=== PATIENT | male | born 1930 | race Two or more races ===

== ENCOUNTER 2016-12-12 23:59 | Inpatient (IN) | payer MEDICARE ==
[2016-12-13 00:25] LABS: HEMATOCRIT 38.2 % (37.9-51.0); HEMOGLOBIN 12.5 g/dL (13.5-17.0); HGB HCT DIFFERENCE -0.7; MEAN CORPUSCULAR HGB CONC 32.7 g/dL (32.0-36.0); MEAN CORPUSCULAR VOLUME 83 fl (80-97); RED BLOOD COUNT 4.62 10^6/uL (4.35-5.55); RED CELL DISTRIBUTION WIDTH 15.9 % (11.5-14.0); WHITE BLOOD COUNT 20.5 10^3/uL (4.0-10.5)
[2016-12-13 00:41] LABS: APPEARANCE,URINE CLEAR; BILIRUBIN,URINE NEGATIVE (NEGATIVE); GLUCOSE, URINE NEGATIVE (NEGATIVE); KETONES,URINE 80 mg/dL (NEGATIVE); LEUKOCYTE ESTERASE,URINE NEGATIVE (NEGATIVE); NITRITE,URINE NEGATIVE (NEGATIVE); PROTEIN,URINE NEGATIVE (NEGATIVE); URINE SPECIFIC GRAVITY 1.019
[2016-12-13 00:43] LABS: BAND NEUTROPHILS % (MANUAL) 1 % (3-5); BASOPHILS % (MANUAL) 1 % (0-2); EOSINOPHILS % (MANUAL) 0 % (0-6); LYMPHOCYTES % (MANUAL) 4 % (13-45); TOTAL CELLS COUNTED 100
[2016-12-13 00:46] LABS: ALANINE AMINOTRANSFERASE 26 U/L (21-72); ALBUMIN 4.5 g/dL (3.5-5.0); ALKALINE PHOSPHATASE 72 U/L (38-126); ANION GAP 13 (5-19); ASPARTATE AMINO TRANSFERASE 31 U/L (17-59); BILIRUBIN,TOTAL 1.4 mg/dL (0.2-1.3); BLOOD UREA NITROGEN 14 mg/dL (7-20); CALCIUM 9.5 mg/dL (8.4-10.2); CARBON DIOXIDE 23 mmol/L (22-30); CHLORIDE 101 mmol/L (98-107); CREATININE RESULT 0.64 mg/dL (0.52-1.25); GLUCOSE 175 mg/dL (75-110); LIPASE 22.6 U/L (23-300); POTASSIUM 4.3 mmol/L (3.6-5.0); SODIUM 137.4 mmol/L (137-145); TOTAL PROTEIN 7.6 g/dL (6.3-8.2)
[2016-12-13 00:47] LABS: ANISOCYTOSIS SLIGHT; OVALOCYTES 1+; TEAR DROP CELLS 1+
[2016-12-13] MEDS ORDERED: ONDANSETRON HCL INJ/PF 4 MG/2 ML SDV IV ONE (00:58)
[2016-12-13] MEDS ORDERED: MORPHINE SULFATE 10 MG/ML INJ IV ONE (00:58)
--- NOTE | 2016-12-13 01:00 | ER Document Report ---
ED GI/ - General Chief Complaint: Abdominal Pain Stated Complaint: ABDOMINAL PAIN Time seen by provider: 00:58 Mode of Arrival: Ambulatory Information source: Patient, Relative - Son TRAVEL OUTSIDE OF THE [place] IN LAST 30 DAYS: No - HPI Patient complains to provider of: Abdominal pain, Vomiting Onset: This afternoon Timing/Duration: Sudden Quality of pain: Achy Severity at maximum: Moderate Severity in ED: Moderate Pain Level: 4 Location: RLQ Associated symptoms: Nausea, Vomiting Exacerbated by: Denies Relieved by: Denies Similar symptoms previously: No Recently seen / treated by doctor: No Notes: 12/13/16 00:59 Patient is an 86-year-old male with a history of hypertension and high cholesterol who presents to the emergency room complaining of right lower quadrant abdominal pain with vomiting and nausea that started earlier today couple he denies a history of similar symptoms previously, last bowel movement was 2 days ago, no fever, no dysuria or hematuria, no history of any abdominal surgeries in the past - Related Data Allergies/Adverse Reactions: No Known Allergies Allergy (Unverified 01/21/15 11:40) Past Medical History - General Information source: Patient, Relative - Social History Smoking Status: Never Smoker Family History: Reviewed & Not Pertinent Review of Systems - Review of Systems Constitutional: No symptoms reported EENT: No symptoms reported Cardiovascular: No symptoms reported Respiratory: No symptoms reported Gastrointestinal: See HPI Genitourinary: No symptoms reported Male Genitourinary: No symptoms reported Musculoskeletal: No symptoms reported Skin: No symptoms reported Hematologic/Lymphatic: No symptoms reported Neurological/Psychological: No symptoms reported -: Yes All other systems reviewed and negative Physical Exam - Vital signs Vitals: Temp Pulse Resp BP Pulse Ox 98.3 F 79 19 175/72 H 98 12/13/16 00:19 12/13/16 00:19 12/13/16 00:19 12/13/16 00:19 12/13/16 00:19 Interpretation: Hypertensive - General General appearance: Appears well, Alert - HEENT Head: Normocephalic, Atraumatic Eyes: Normal Pupils: PERRL - Respiratory Respiratory status: No respiratory distress Chest status: Nontender Breath sounds: Normal Chest palpation: Normal - Cardiovascular Rhythm: Regular Heart sounds: Normal auscultation Murmur: No - Abdominal Inspection: Normal Distension: Distended Bowel sounds: Normal Tenderness: Tender - Right lower quadrant tenderness Organomegaly: No organomegaly - Back Back: Normal, Nontender - Extremities General upper extremity: Normal inspection, Nontender, Normal color, Normal ROM , Normal temperature General lower extremity: Normal inspection, Nontender, Normal color, Normal ROM , Normal temperature, Normal weight bearing. No: Nahed's sign - Neurological Neuro grossly intact: Yes Cognition: Normal Orientation: AAOx4 Emilia Coma Scale Eye Opening: Spontaneous [place] Coma Scale Verbal: Oriented [place] Coma Scale Motor: Obeys Commands [place] Coma Scale Total: 15 Speech: Normal Motor strength normal: LUE, RUE, LLE, RLE Sensory: Normal - Psychological Associated symptoms: Normal affect, Normal mood - Skin Skin Temperature: Warm Skin Moisture: Dry Skin Color: Normal Course - Re-evaluation Re-evalutation: 12/13/16 02:20 Patient was discussed with surgeon, Dr. Nguyen, who requests patient received antibiotics, 1 g of Invanz, fluid rehydration, remaining nothing by mouth, he will come to the emergency room and evaluate patient, this plan was discussed with patient in several family members at bedside who acknowledge understanding and agreement - Vital Signs Vital signs: Temp Pulse Resp BP Pulse Ox 98.3 F 79 19 175/72 H 98 12/13/16 00:19 12/13/16 00:19 12/13/16 00:19 12/13/16 00:19 12/13/16 00:19 - Laboratory Result Diagrams: 12/13/16 00:13 12/13/16 00:13 Laboratory results interpreted by me: 12/13/16 12/13/16 12/13/16 00:13 00:13 00:28 WBC 20.5 H Hgb 12.5 L RDW 15.9 H Seg Neuts % (Manual) 85 H Band Neutrophils % 1 L Lymphocytes % (Manual) 4 L Abs Neuts (Manual) 17.6 H Glucose 175 H Total Bilirubin 1.4 H Lipase 22.6 L Urine Ketones 80 H Urine Urobilinogen 4.0 H - Diagnostic Test Radiology reviewed: Image reviewed, Reports reviewed - Transfer of Care Care transferred to following provider: Dr Nguyen Discharge - Discharge Clinical Impression: Acute appendicitis Qualifiers: Acute appendicitis type: with localized peritonitis Qualified Code(s): K35.3 - Acute appendicitis with localized peritonitis Condition: Fair Disposition: ADMITTED INPATIENT Admitting Provider: Surgicalist Unit Admitted: Surgical Floor
[2016-12-13] MEDS: NORMAL SALINE 1000 ML 1,000 ML IV PRN ×2 (01:30→09:36)
[2016-12-13] MEDS ORDERED: ERTAPENEM SODIUM INJ 1 GM VIAL IV ONE (02:15)
[2016-12-13] MEDS ORDERED: LIDOCAINE 1% INJ-PF (10 MG/ML) 30 ML SDV ONE (07:07)
[2016-12-13] MEDS ORDERED: BUPIVACAINE HCL 0.25% /EPINEPHRINE INJ/PF 30 ML SDV ONE (07:08)
--- NOTE | 2016-12-13 07:48 | PDOC H&P ---
History of Present Illness Admission Date/PCP: 12/13/16 02:37 History of Present Illness: CAROLINA WESLEY is a 86 year old male originally from [facility], presents with onset of abdominal pain. The patient had a small breakfast on 12/12/2016. He intended to eat a late lunch at 2 PM, but had loss of appetite. At 4 PM he noticed the onset of mid abdominal pain. Gradually the pain localized to the right lower quadrant. He drinks water, tried Imodium but neither of these helped. He had nausea and vomited 5 times. He had fevers and chills. The pain stayed in the right lower quadrant and radiated out throughout his abdomen, but did not go to his back or legs or chest. The pain is severe. The pain is constant. The patient has hiccups and burping as well. He denies constipation, diarrhea, chest pain, shortness of breath, dizziness, lightheadedness, seizures, tremors, vision changes, headaches, leg swelling, rash, itching. He denies blood in his stool or blood in his urine. Had a normal bowel movement yesterday morning. Past Medical History Cardiac Medical History: Reports: Hyperlipidema, Hypertension Past Surgical History Past Surgical History: Reports: Other - Nose surgery 2003. Laser eye surgery. Social History Information Source: Patient Lives with: Family Smoking Status: Former Smoker - Quit in 1999 Last Time Smoked: 1999 Frequency of Alcohol Use: None Hx Recreational Drug Use: No Drugs: None Hx Prescription Drug Abuse: No Family History Family History: Reviewed & Not Pertinent, Other - Denies any significant family illnesses. Denies personal or family history of bleeding disorders, blood clots or anesthesia problems. Parental Family History Reviewed: Yes Children Family History Reviewed: Yes Sibling(s) Family History Reviewed.: Yes Medication/Allergy Allergies/Adverse Reactions: No Known Allergies Allergy (Unverified 01/21/15 11:40) Review of Systems All systems: reviewed and no additional remarkable complaints except as stated Physical Exam Vital Signs: Temp Pulse Resp BP Pulse Ox 101.9 F H 97 19 132/58 H 96 12/13/16 06:15 12/13/16 06:15 12/13/16 06:15 12/13/16 06:15 12/13/16 06:15 Intake & Output 12/12/16 12/13/16 12/14/16 06:59 06:59 06:59 Weight 70.3 kg General appearance: PRESENT: mild distress Head exam: PRESENT: normocephalic Eye exam: PRESENT: EOMI Mouth exam: PRESENT: tongue midline Neck exam: ABSENT: tenderness Respiratory exam: PRESENT: clear to auscultation william Cardiovascular exam: PRESENT: RRR, tachycardia GI/Abdominal exam: PRESENT: distended, hernia - Bilateral easily reducible hernias., soft, tenderness. ABSENT: guarding, rebound Extremities exam: ABSENT: tenderness Musculoskeletal exam: ABSENT: deformity Neurological exam: PRESENT: alert, oriented to person, oriented to place, oriented to time, oriented to situation Psychiatric exam: PRESENT: appropriate affect, normal mood Skin exam: ABSENT: jaundice, pallor Results Impressions: Abdomen/Pelvis CT 12/13/16 00:57 IMPRESSION: 1. Acute appendicitis. No evidence of abscess or free air. 2. Prominent hiatal hernia. 3. Sigmoid colon containing left inguinal hernia without imaging findings to suggest incarceration. 4. Other chronic and incidental findings as detailed above. Status: Image reviewed by me Assessment & Plan - Diagnosis (1) Acute appendicitis Qualifiers: Acute appendicitis type: with localized peritonitis Qualified Code(s): K35.3 - Acute appendicitis with localized peritonitis Is this a current diagnosis for this admission?: YesPlan: Nothing by mouth. SCDs. Already received Invanz. EKG and chest x-ray for preop. Recommended laparoscopic appendectomy. I discussed pre-and postoperative expectations and limitations. I discussed risks, benefits and alternatives including , heart attack, stroke, blood clots in legs, blood clots in lungs, pneumonia, hernia, bleeding, infection, damage to surrounding structures such as bladder, bowel, blood vessels and ureters. We discussed the incidental findings on the CT scan. I gave him a copy of the report. I directed them to follow-up with her primary care provider in 2 weeks with the incidental findings. The patient's primary language is aerobic but he does speak some Yakut. His son Julio Cesar was present and is fluent in Yakut and assisted with some translation. The [employer] computer was used to confirm the history, to perform the physical, to obtain the consents, to make the recommendations about PCP follow-up on the CT scan, to answer any questions. Our freelance data entry's name was Augusto. Understands and wishes to proceed with laparoscopic appendectomy.
[2016-12-13] MEDS ORDERED: HYDROMORPHONE HCL INJ/PF 2 MG/ML AMPULE ONE ×2 (07:49)
[2016-12-13] MEDS ORDERED: FENTANYL CITRATE INJ/PF 100 MCG/2 ML AMPUL ONE ×2 (07:49→08:07)
[2016-12-13] MEDS ORDERED: MIDAZOLAM 2 MG/2 ML INJ ONE (07:50)
[2016-12-13] MEDS ORDERED: PROPOFOL INJ 200 MG/20 ML VIAL IV ONE (07:50)
[2016-12-13] MEDS ORDERED: ACETAMINOPHEN 100 ML IV ONE (07:50)
[2016-12-13] MEDS ORDERED: EPHEDRINE SULFATE INJ 50 MG/1 ML AMPULE ONE (07:50)
[2016-12-13] MEDS ORDERED: NEOSTIGMINE METHYLSULFATE 10 MG/10 ML VIAL ONE (08:40)
[2016-12-13] MEDS ORDERED: PHENYLEPHRINE HCL INJ/PF 10 MG/1 ML SDV ONE (08:40)
[2016-12-13] MEDS ORDERED: DEXAMETHASONE SOD PHOSPHATE INJ 4 MG/1 ML VIAL ONE (08:40)
[2016-12-13] MEDS ORDERED: ONDANSETRON HCL INJ/PF 4 MG/2 ML SDV ONE (08:40)
[2016-12-13] MEDS ORDERED: SUCCINYLCHOLINE CHLORIDE INJ 200 MG/10 ML VIAL ONE (08:40)
[2016-12-13] MEDS ORDERED: LIDOCAINE 2% INJ-PF (20 MG/ML) 10 ML AMPUL ONE (08:40)
[2016-12-13] MEDS ORDERED: ROCURONIUM BROMIDE INJ 50 MG/5 ML VIAL IV ONE (08:40)
[2016-12-13] MEDS ORDERED: GLYCOPYRROLATE INJ 0.4 MG/2 ML VIAL ONE (08:40)
--- NOTE | 2016-12-13 09:23 | EKG REPORT ---
SEVERITY:- BORDERLINE ECG - SINUS RHYTHM PROBABLE LEFT ATRIAL ABNORMALITY MINIMAL ST DEPRESSION, LATERAL LEADS : Confirmed by: Caroline Smith 13-Dec-2016 09:22:27
[2016-12-13] MEDS: NALOXONE HCL INJ/PF 0.4 MG/1 ML SDV ONE ×3 (10:33→10:53)
--- NOTE | 2016-12-13 10:46 | Operative Report ---
Operative Report DATE OF SURGERY: 12/13/16 PREOPERATIVE DIAGNOSIS: Acute appendicitis POSTOPERATIVE DIAGNOSIS: Ruptured appendicitis with peritoneal contamination OPERATION: Laparoscopic appendectomy SURGEON: EVELIA DAVE ANESTHESIA: GA TISSUE REMOVED OR ALTERED: Appendix COMPLICATIONS: None noted ESTIMATED BLOOD LOSS: minimal INTRAOPERATIVE FINDINGS: Ruptured appendicitis with peritoneal contamination PROCEDURE: The patient was brought to the operative suite and placed supine on the OR table. Timeout was performed. Antibiotics were administered in the ER. Padding and positioning was appropriate. The patient was induced, intubated and maintained on general endotracheal anesthesia throughout the procedure. Clark catheter was placed sterilely. Patient was prepped and draped in the normal sterile fashion. The skin above the umbilicus was infiltrated with local anesthetic. A 5 mm incision was made. A [place] and [place]on were used to dissect down to the level of the fascia, grasped the fascia and elevate it. The Veress needle was placed. Satisfactory water drop test was performed. Low flow insufflation was connected and yielded low opening pressure. Insufflation was advanced to high flow and pneumoperitoneum of 15 mmHg was obtained and maintained with procedure. Trocar and camera were placed through this incision confirming entry into the abdominal cavity without incident. Next, the 5 mm suprapubic and the 12 mm left lower quadrant incisions were placed in normal location and fashion under direct visualization after infiltration with local anesthetic. Instruments were introduced in the abdominal cavity was inspected. There was feculent contamination and abscess in the right lower quadrant. There was murky fluid in the pelvis, in the right paracolic gutter, and over the liver edge. The terminal ileum and cecum showed inflammation and were adhesed down to the appendix but otherwise appeared normal. The appendix was dilated, turgid and had a hole in the lateral aspect with stool and pus leaking out. Pelvic sidewall adhesions to the appendix were taken down with Harmonic scalpel. The appendix was elevated. A window was made at the base the appendix adjacent to the cecum. The echelon 45 blue load stapler was used to fire across the base the appendix adjacent to the cecum. The mesoappendix was taken down with multiple firings of the Harmonic scalpel. The appendix was placed in an Endo Catch bag and removed through the 12 mm trocar site and sent to pathology for further analysis. The abdominal cavity was irrigated in various locations with 3 L of crystalloid in aliquots of 100-300 mL. The irrigation was aspirated free of the abdominal cavity. The right lower quadrant was inspected. Staple line was intact. Residual fluid was suctioned. A 15 Hungarian round drain was placed along the right paracolic gutter from the liver down to the cecum and brought out through the suprapubic incision. It was sewn in place with a 2-0 Prolene suture and connected to TOMMY bulb closed suction. The abdominal cavity was surveyed and was unremarkable. Trocar sites were infiltrated with more local anesthetic. The left lower quadrant trocar site was closed at the level of the fascia with 0 Vicryl suture using the Endo Close needle. Pneumoperitoneum was released. Trochars were removed. Incisions were closed at the level of the skin with 4-0 Monocryl. The closed incisions were dressed with benzoin tincture, Steri-Strips and Band-Aids. All lap, needle and sponge counts were correct. The patient tolerated procedure well and was taken recovery in stable condition.
[2016-12-13] MEDS ORDERED: DOCUSATE SODIUM 100 MG CAPSULE PO ONE (11:00)
[2016-12-13] MEDS ORDERED: POTASSI CL 20 MEQ/D5-1/2NS 1L 1,000 ML IV ONE (11:10)
[2016-12-13] MEDS: MORPHINE SULFATE 10 MG/ML INJ IV PRN ×2 (14:29→21:20)
[2016-12-13] MEDS: PIPERACILLIN SODIUM/TAZOBACTAM 3.375 GM in NORMAL SALINE 100 ML IV SCH ×2 (15:11→18:44)
[2016-12-13] MEDS: DOCUSATE SODIUM 100 MG CAPSULE PO SCH (18:44)
[2016-12-13] MEDS: POTASSI CL 20 MEQ/D5-1/2NS 1L 1,000 ML IV PRN (21:05)
--- NOTE | 2016-12-13 21:19 | PDOC PROGRESS REPORT ---
Subjective Progress Note for:: 12/13/16 Subjective:: Patient seen later in the day. Denies nausea or vomiting. Awake, visiting with his grandsons. Reports mild discomfort. Physical Exam Vital Signs: Temp Pulse Resp BP Pulse Ox 97.5 F 78 16 112/68 96 12/13/16 20:01 12/13/16 20:01 12/13/16 20:01 12/13/16 20:01 12/13/16 20:01 Pulse Oximeter Continuous Start: 12/13/16 11: 19 Freq: RTQ4 Status: Active Document 12/13/16 20:00 LRO (Rec: 12/13/16 20:53 LRO [id number]) Pulse Oximetry Assessment Oxygen Saturation (92-100) 96 Oxygen Flow Rate (L/min) 2 Oxygen Delivery Method Nasal Cannula Equipment Usage Equipment in Use Continuous SpO2 Machine # 2 Intake & Output 12/12/16 12/13/16 12/14/16 06:59 06:59 06:59 Intake Total 1256 Output Total 340 Balance 916 General appearance: PRESENT: no acute distress Head exam: PRESENT: normocephalic Eye exam: PRESENT: EOMI Mouth exam: PRESENT: tongue midline GI/Abdominal exam: PRESENT: distended, soft, tenderness - Appropriate tenderness. Incisions intact with dressings. Drain with serosanguineous.. ABSENT: guarding, rebound Extremities exam: ABSENT: tenderness Neurological exam: PRESENT: alert, oriented to situation Psychiatric exam: PRESENT: appropriate affect, normal mood Skin exam: PRESENT: normal color. ABSENT: jaundice Results Impressions: Chest X-Ray 12/13/16 00:00 IMPRESSION: Parenchymal opacities at the lung bases somewhat interstitial. Acute versus chronic versus both. Abdomen/Pelvis CT 12/13/16 00:57 IMPRESSION: 1. Acute appendicitis. No evidence of abscess or free air. 2. Prominent hiatal hernia. 3. Sigmoid colon containing left inguinal hernia without imaging findings to suggest incarceration. 4. Other chronic and incidental findings as detailed above. Assessment & Plan - Diagnosis (1) Acute appendicitis Qualifiers: Acute appendicitis type: with localized peritonitis Qualified Code(s): K35.3 - Acute appendicitis with localized peritonitis Is this a current diagnosis for this admission?: YesPlan: Looks much better. Continue antibiotics, I-S, SCDs, Lovenox, TOMMY drains, ice chips. Patient later requested Clark removal. Was having adequate output. Clark was removed. Labs in the morning.
[2016-12-13] MEDS: ONDANSETRON HCL INJ/PF 4 MG/2 ML SDV IV PRN (21:20)
[2016-12-14] MEDS: PIPERACILLIN SODIUM/TAZOBACTAM 3.375 GM in NORMAL SALINE 100 ML IV SCH ×4 (00:13→18:13)
[2016-12-14] MEDS: MORPHINE SULFATE 10 MG/ML INJ IV PRN ×5 (01:58→22:29)
[2016-12-14] MEDS: POTASSI CL 20 MEQ/D5-1/2NS 1L 1,000 ML IV PRN ×2 (06:28→18:12)
[2016-12-14 06:39] LABS: HEMATOCRIT 35.2 % (37.9-51.0); HEMOGLOBIN 11.3 g/dL (13.5-17.0); HGB HCT DIFFERENCE -1.3; MEAN CORPUSCULAR HEMOGLOBIN 27.1 pg (27.0-33.4); MEAN CORPUSCULAR HGB CONC 32.1 g/dL (32.0-36.0); MEAN CORPUSCULAR VOLUME 84 fl (80-97); RED BLOOD COUNT 4.17 10^6/uL (4.35-5.55); WHITE BLOOD COUNT 24.3 10^3/uL (4.0-10.5)
[2016-12-14 06:49] LABS: ALANINE AMINOTRANSFERASE 22 U/L (21-72); ALBUMIN 3.7 g/dL (3.5-5.0); ALKALINE PHOSPHATASE 59 U/L (38-126); ANION GAP 13 (5-19); ASPARTATE AMINO TRANSFERASE 27 U/L (17-59); BLOOD UREA NITROGEN 21 mg/dL (7-20); CALCIUM 7.9 mg/dL (8.4-10.2); CARBON DIOXIDE 20 mmol/L (22-30); CHLORIDE 105 mmol/L (98-107); CREATININE RESULT 0.89 mg/dL (0.52-1.25); GLUCOSE 135 mg/dL (75-110); MAGNESIUM 1.8 mg/dL (1.6-2.3); SODIUM 138.1 mmol/L (137-145); TOTAL PROTEIN 6.7 g/dL (6.3-8.2)
[2016-12-14] MEDS: IPRATROPIUM/ALBUTEROL 0.5-2.5 MG/3 ML AMPUL NEB PRN ×2 (09:49→17:21)
[2016-12-14] MEDS: ENOXAPARIN SODIUM INJ 40 MG/0.4 ML DISP.SYRIN SUBCUT SCH (10:25)
[2016-12-14] MEDS: DOCUSATE SODIUM 100 MG CAPSULE PO SCH ×2 (10:25→18:13)
[2016-12-14] MEDS: IPRATROPIUM/ALBUTEROL 0.5-2.5 MG/3 ML AMPUL NEB SCH ×2 (13:40→20:12)
[2016-12-14] MEDS ORDERED: ENALAPRILAT DIHYDRATE INJ/PF 1.25 MG/1 ML SDV IV PRN (13:41)
--- NOTE | 2016-12-14 13:45 | PDOC CONSULTATION ---
Consultation Consult Date: 12/14/16 Attending physician:: EVELIA NGUYEN Consult reason:: Wheezing, hypertension History of Present Illness Admission Date/PCP: 12/13/16 10:12 Patient complains of: Cough and wheezing History of Present Illness: CAROLINA WESLEY is a 86 year old male originally from [facility], presents with onset of abdominal pain. The patient had a small breakfast on 12/12/2016. He intended to eat a late lunch at 2 PM, but had loss of appetite. At 4 PM he noticed the onset of mid abdominal pain. Gradually the pain localized to the right lower quadrant. He drinks water, tried Imodium but neither of these helped. He had nausea and vomited 5 times. He had fevers and chills. The pain stayed in the right lower quadrant and radiated out throughout his abdomen, but did not go to his back or legs or chest. The pain is severe. The pain is constant. The patient has hiccups and burping as well. He denies constipation, diarrhea, chest pain, shortness of breath, dizziness, lightheadedness, seizures, tremors, vision changes, headaches, leg swelling, rash, itching. He denies blood in his stool or blood in his urine. Had a normal bowel movement yesterday morning. He was taken to the OR by Dr Nguyen, yesterday morning for an emergent appendectomy for appendeceal perforation. He tolerated surgery well. This morning he was noted by nursing to have a cough and some expiratory wheezing. 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 Laser eye surgery. Social History Information Source: Patient, Relative Lives with: Family Smoking Status: Former Smoker - Quit in 1999 Last Time Smoked: 1999 Frequency of Alcohol Use: None Hx Recreational Drug Use: No Drugs: None Hx Prescription Drug Abuse: No - Advance Directive Resuscitation Status: Full Code Surrogate healthcare decision maker:: He has no designated MPOA, his 2 sons are his closest relatives and will decide for him should he become incapacitated. Family History Family History: Hypertension, Other - Denies any significant family illnesses. Denies personal or family history of bleeding disorders, blood clots or anesthesia problems. Parental Family History Reviewed: Yes Children Family History Reviewed: Yes Sibling(s) Family History Reviewed.: Yes Medication/Allergy Home Medications: Lisinopril [Prinivil 2.5 mg Tablet] 2.5 mg PO DAILY 12/13/16 Pravastatin Sodium [Pravachol] 20 mg PO DAILY 12/13/16 Allergies/Adverse Reactions: No Known Allergies Allergy (Unverified 01/21/15 11:40) Review of Systems Constitutional: ABSENT: chills, fever(s), headache(s), weight gain, weight loss Eyes: ABSENT: visual disturbances Ears: ABSENT: hearing changes Cardiovascular: ABSENT: chest pain, dyspnea on exertion, edema, orthropnea, palpitations Respiratory: PRESENT: cough, sputum, other - mild expiratory wheezing Gastrointestinal: PRESENT: abdominal pain - related to surgery, constipation. ABSENT: diarrhea, hematemesis, hematochezia, nausea, vomiting Musculoskeletal: ABSENT: joint swelling Integumentary: ABSENT: rash, wounds Neurological: ABSENT: abnormal gait, abnormal speech, confusion, dizziness, focal weakness, syncope Psychiatric: ABSENT: anxiety, depression, homidical ideation, suicidal ideation Endocrine: ABSENT: cold intolerance, heat intolerance, polydipsia, polyuria Hematologic/Lymphatic: ABSENT: easy bleeding, easy bruising Physical Exam Vital Signs: Temp Pulse Resp BP Pulse Ox 98.5 F 95 18 131/74 H 96 12/14/16 12:00 12/14/16 12:00 12/14/16 12:00 12/14/16 12:00 12/14/16 12:00 Pulse Oximeter Continuous Start: 12/13/16 11: 19 Freq: RTQ4 Status: Active Document 12/14/16 09:49 [facility] (Rec: 12/14/16 09:57 [facility] [email or web address]) Pulse Oximetry Assessment Oxygen Saturation (92-100) 81 Oxygen Flow Rate (L/min) 18 Oxygen Delivery Method Nasal Cannula Fraction of Inspired Oxygen (FIO2) 2 Equipment Usage Equipment in Use Continuous SpO2 Machine # 2 Intake & Output 12/13/16 12/14/16 12/15/16 06:59 06:59 06:59 Intake Total 2449 Output Total 600 Balance 1849 General appearance: PRESENT: no acute distress, well-developed, well-nourished Head exam: PRESENT: atraumatic, normocephalic Eye exam: PRESENT: conjunctiva pink, EOMI, PERRLA. ABSENT: scleral icterus Ear exam: PRESENT: normal external ear exam Mouth exam: PRESENT: moist, tongue midline Neck exam: ABSENT: carotid bruit, JVD, lymphadenopathy, thyromegaly Respiratory exam: PRESENT: clear to auscultation william. ABSENT: rales, rhonchi, wheezes Cardiovascular exam: PRESENT: RRR. ABSENT: diastolic murmur, rubs, systolic murmur Pulses: PRESENT: normal dorsalis pedis pul Vascular exam: PRESENT: normal capillary refill GI/Abdominal exam: PRESENT: hypoactive bowel sounds, soft, tenderness - incisional. ABSENT: distended, guarding, mass, organolmegaly, rebound Rectal exam: PRESENT: deferred Extremities exam: PRESENT: full ROM. ABSENT: calf tenderness, clubbing, pedal edema Neurological exam: PRESENT: alert, awake, oriented to person, oriented to place , oriented to time, oriented to situation, CN II-XII grossly intact. ABSENT: motor sensory deficit Psychiatric exam: PRESENT: appropriate affect, normal mood. ABSENT: homicidal ideation, suicidal ideation Skin exam: PRESENT: dry, intact, warm. ABSENT: cyanosis, rash Results Laboratory Results: 12/14/16 05:37 12/14/16 05:37 12/14/16 12/14/16 05:37 05:37 WBC 24.3 H RBC 4.17 L Hgb 11.3 L Hct 35.2 L MCV 84 MCH 27.1 MCHC 32.1 RDW 17.0 H Plt Count 188 Sodium 138.1 Potassium 5.0 Chloride 105 Carbon Dioxide 20 L Anion Gap 13 BUN 21 H Creatinine 0.89 Est GFR ( Amer) > 60 Est GFR (Non-Af Amer) > 60 Glucose 135 H Calcium 7.9 L Phosphorus 3.0 Magnesium 1.8 Total Bilirubin 1.0 AST 27 ALT 22 Alkaline Phosphatase 59 Total Protein 6.7 Albumin 3.7 12/14/16 05:37 NT-Pro-B Natriuret Pep 507 H Impressions: Abdomen/Pelvis CT 12/13/16 00:57 IMPRESSION: 1. Acute appendicitis. No evidence of abscess or free air. 2. Prominent hiatal hernia. 3. Sigmoid colon containing left inguinal hernia without imaging findings to suggest incarceration. 4. Other chronic and incidental findings as detailed above. Chest X-Ray 12/14/16 08:43 IMPRESSION: Right basilar airspace disease likely atelectasis Assessment & Plan - Diagnosis (1) Acute appendicitis Qualifiers: Acute appendicitis type: with localized peritonitis Qualified Code(s): K35.3 - Acute appendicitis with localized peritonitis Is this a current diagnosis for this admission?: YesPlan: Patient is POD #1 emergent appendectomy with drain placement by Dr Nguyen. Doing very well at this time. On Zosyn (2) Wheezing Is this a current diagnosis for this admission?: YesPlan: Patient with mild expiratory wheezing on auscultation. Does not appear to be related to fluid volume overload. Will start Duoneb nebulizers and flutter valve. 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 (3) Essential (primary) hypertension Is this a current diagnosis for this admission?: YesPlan: Patient is presently normotensive and NPO. He takes low dose lisinopril. Will add prn vasotec for hypertension if needed prior to him resuming oral intake - Time Time Spent: 50 to 70 Minutes Critical Time spent with patient: 25-34 minutes Medications reviewed and adjusted accordingly: Yes
--- NOTE | 2016-12-14 15:20 | PDOC PROGRESS REPORT ---
Subjective Subjective:: Noted this morning to have decreased saturations and wheezes. Patient was switched to nasal cannula and saturations improved. Patient has a long history of smoking, although he did quit around 15 years ago. BNP was checked and was just over normal, indicating the etiology is probably not heart failure. Physical Exam Vital Signs: Temp Pulse Resp BP Pulse Ox 98.5 F 99 18 131/74 H 100 12/14/16 12:00 12/14/16 14:00 12/14/16 13:40 12/14/16 12:00 12/14/16 13:40 Pulse Oximeter Continuous Start: 12/13/16 11: 19 Freq: RTQ4 Status: Active Document 12/14/16 12:00 [facility] (Rec: 12/14/16 13:42 [facility] [email or web address]) Pulse Oximetry Assessment Oxygen Saturation (92-100) 100 Oxygen Flow Rate (L/min) 2 Oxygen Delivery Method Nasal Cannula Equipment Usage Equipment in Use Continuous SpO2 Machine # 2 Intake & Output 12/13/16 12/14/16 12/15/16 06:59 06:59 06:59 Intake Total 2449 Output Total 600 Balance 1849 General appearance: PRESENT: no acute distress Head exam: PRESENT: normocephalic Eye exam: PRESENT: EOMI Respiratory exam: PRESENT: wheezes Cardiovascular exam: PRESENT: RRR, systolic murmur GI/Abdominal exam: PRESENT: distended, soft, tenderness - Appropriate tenderness to palpation. Incisions clean dry and intact with dressings. Drain with murky/purulent fluid. No bowel sounds.. ABSENT: guarding, rebound Neurological exam: PRESENT: alert, oriented to situation Psychiatric exam: PRESENT: appropriate affect, normal mood Skin exam: ABSENT: jaundice Results Laboratory Results: 12/14/16 05:37 12/14/16 05:37 12/14/16 12/14/16 05:37 05:37 WBC 24.3 H RBC 4.17 L Hgb 11.3 L Hct 35.2 L MCV 84 MCH 27.1 MCHC 32.1 RDW 17.0 H Plt Count 188 Sodium 138.1 Potassium 5.0 Chloride 105 Carbon Dioxide 20 L Anion Gap 13 BUN 21 H Creatinine 0.89 Est GFR ( Amer) > 60 Est GFR (Non-Af Amer) > 60 Glucose 135 H Calcium 7.9 L Phosphorus 3.0 Magnesium 1.8 Total Bilirubin 1.0 AST 27 ALT 22 Alkaline Phosphatase 59 Total Protein 6.7 Albumin 3.7 12/14/16 05:37 NT-Pro-B Natriuret Pep 507 H Impressions: Abdomen/Pelvis CT 12/13/16 00:57 IMPRESSION: 1. Acute appendicitis. No evidence of abscess or free air. 2. Prominent hiatal hernia. 3. Sigmoid colon containing left inguinal hernia without imaging findings to suggest incarceration. 4. Other chronic and incidental findings as detailed above. Chest X-Ray 12/14/16 08:43 IMPRESSION: Right basilar airspace disease likely atelectasis Assessment & Plan - Diagnosis (1) Acute appendicitis Qualifiers: Acute appendicitis type: with localized peritonitis Qualified Code(s): K35.3 - Acute appendicitis with localized peritonitis Is this a current diagnosis for this admission?: YesPlan: Acute appendicitis with feculent contamination of the peritoneum. Blood culture showed bacteremia. IV Zosyn should have good coverage for the enteric organisms which would be the offending agents. Temp and heart rate are better, but he is still experiencing significant effects of feculent contamination with sepsis. Would not be surprised if he had an extended ileus. He continues to have purulent drainage out of his drain. He has diffuse wheezes and decreased saturations, medicine was consulted. DuoNeb treatment was begun. He does not seem to be in heart failure based on his BMP which was just barely over normal. He does have a 50+ pack year history of smoking. Continue IV Zosyn, IV fluids , nothing by mouth, SCDs, incentive spirometry, flutter valve, Lovenox.
[2016-12-15] MEDS: PIPERACILLIN SODIUM/TAZOBACTAM 3.375 GM in NORMAL SALINE 100 ML IV SCH ×5 (00:16→23:47)
[2016-12-15] MEDS: MORPHINE SULFATE 10 MG/ML INJ IV PRN ×4 (01:14→08:52)
[2016-12-15] MEDS: IPRATROPIUM/ALBUTEROL 0.5-2.5 MG/3 ML AMPUL NEB PRN ×2 (04:29→12:32)
[2016-12-15 07:36] LABS: ABSOLUTE EOSINOPHILS # (AUTO) 0.1 10^3/uL (0.0-0.6); ABSOLUTE MONOCYTES (AUTO) 0.7 10^3/uL (0.1-1.4); ABSOLUTE NEUT (AUTO) 12.7 10^3/uL (1.7-8.2); BASOPHILS % (AUTO) 0.1 % (0-2); EOSINOPHILS % (AUTO) 0.4 % (0-6); HEMATOCRIT 32.6 % (37.9-51.0); HEMOGLOBIN 10.5 g/dL (13.5-17.0); HGB HCT DIFFERENCE -1.1; LYMPHOCYTES % (AUTO) 6.6 % (13-45); MEAN CORPUSCULAR HEMOGLOBIN 27.2 pg (27.0-33.4); MEAN CORPUSCULAR HGB CONC 32.3 g/dL (32.0-36.0); MEAN CORPUSCULAR VOLUME 84 fl (80-97); MONOCYTES % (AUTO) 4.9 % (3-13); RED BLOOD COUNT 3.87 10^6/uL (4.35-5.55); RED CELL DISTRIBUTION WIDTH 16.9 % (11.5-14.0); WHITE BLOOD COUNT 14.5 10^3/uL (4.0-10.5)
[2016-12-15] MEDS: ENOXAPARIN SODIUM INJ 40 MG/0.4 ML DISP.SYRIN SUBCUT SCH (07:54)
[2016-12-15] MEDS: IPRATROPIUM/ALBUTEROL 0.5-2.5 MG/3 ML AMPUL NEB SCH ×3 (08:38→20:09)
[2016-12-15] MEDS ORDERED: POTASSI CL 20 MEQ/D5-1/2NS 1L 1,000 ML IV PRN (09:21)
[2016-12-15] MEDS ORDERED: OXYCODONE-ACETAMINOPHEN 5-325 MG TABLET PO PRN (09:21)
[2016-12-15] MEDS: DOCUSATE SODIUM 100 MG CAPSULE PO SCH ×2 (10:00→17:19)
--- NOTE | 2016-12-15 10:35 | PDOC PROGRESS REPORT ---
Subjective Progress Note for:: 12/15/16 Subjective:: Postoperative day 2 laparoscopic appendectomy Physical Exam Vital Signs: Temp Pulse Resp BP Pulse Ox 99.4 F 100 18 119/54 L 94 12/15/16 07:29 12/15/16 08:38 12/15/16 08:38 12/15/16 07:29 12/15/16 08:38 Pulse Oximeter Continuous Start: 12/13/16 11: 19 Freq: RTQ4 Status: Active Document 12/15/16 08:38 [facility] (Rec: 12/15/16 08:48 [facility] [email or web address]) Pulse Oximetry Assessment Oxygen Saturation (92-100) 94 Oxygen Flow Rate (L/min) 2 Oxygen Delivery Method Nasal Cannula Equipment Usage Equipment in Use Continuous SpO2 Machine # 2 Intake & Output 12/14/16 12/15/16 12/16/16 06:59 06:59 06:59 Intake Total 2449 2310 Output Total 600 705 Balance 1849 1605 General appearance: PRESENT: mild distress, other - Patient is audibly wheezing GI/Abdominal exam: PRESENT: other - Some bruising of the abdominal wall towards the pelvis left side. Draining serous sanguinous material Results Laboratory Results: 12/15/16 07:12 12/14/16 05:37 12/15/16 07:12 WBC 14.5 H RBC 3.87 L Hgb 10.5 L Hct 32.6 L MCV 84 MCH 27.2 MCHC 32.3 RDW 16.9 H Plt Count 179 Seg Neutrophils % 88.0 H Lymphocytes % 6.6 L Monocytes % 4.9 Eosinophils % 0.4 Basophils % 0.1 Absolute Neutrophils 12.7 H Absolute Lymphocytes 1.0 Absolute Monocytes 0.7 Absolute Eosinophils 0.1 Absolute Basophils 0.0 12/14/16 05:37 NT-Pro-B Natriuret Pep 507 H Impressions: Abdomen/Pelvis CT 12/13/16 00:57 IMPRESSION: 1. Acute appendicitis. No evidence of abscess or free air. 2. Prominent hiatal hernia. 3. Sigmoid colon containing left inguinal hernia without imaging findings to suggest incarceration. 4. Other chronic and incidental findings as detailed above. Chest X-Ray 12/14/16 08:43 IMPRESSION: Right basilar airspace disease likely atelectasis Assessment & Plan - Diagnosis (1) Acute appendicitis Qualifiers: Acute appendicitis type: with localized peritonitis Qualified Code(s): K35.3 - Acute appendicitis with localized peritonitis Is this a current diagnosis for this admission?: YesPlan: Patient is 2 days status post laparoscopic appendectomy by Dr. MOISES anton; he has no evidence of postoperative gastrointestinal problems. We will start clear liquid diet and advance as tolerated. We will leave the pelvic drain in position daily. 2. Pulmonary function poor from a chronic standpoint. We will review his medications, step up his pulmonary toilet and ambulation 3. Will decrease IV fluids and watch urine output closely. - Time Time Spent with patient: 15-24 minutes
[2016-12-15] MEDS ORDERED: GUAIFENESIN SYRP 200 MG/10 ML UDC PO PRN (10:36)
[2016-12-15] MEDS ORDERED: BUDESONIDE NEB 0.5 MG/2 ML AMPUL NEB ONE (12:45)
[2016-12-15] MEDS ORDERED: BUDESONIDE NEB 0.5 MG/2 ML AMPUL NEB SCH (20:00)
[2016-12-15] MEDS: BUDESONIDE NEB 0.5 MG/2 ML AMPUL NEB SCH (20:09)
[2016-12-16] MEDS: PIPERACILLIN SODIUM/TAZOBACTAM 3.375 GM in NORMAL SALINE 100 ML IV SCH ×4 (05:50→23:50)
[2016-12-16 07:05] LABS: ABSOLUTE EOSINOPHILS # (AUTO) 0.3 10^3/uL (0.0-0.6); ABSOLUTE MONOCYTES (AUTO) 0.9 10^3/uL (0.1-1.4); ABSOLUTE NEUT (AUTO) 8.9 10^3/uL (1.7-8.2); BASOPHILS % (AUTO) 0.2 % (0-2); EOSINOPHILS % (AUTO) 2.4 % (0-6); HEMATOCRIT 30.8 % (37.9-51.0); HEMOGLOBIN 9.9 g/dL (13.5-17.0); HGB HCT DIFFERENCE -1.1; LYMPHOCYTES % (AUTO) 8.8 % (13-45); MEAN CORPUSCULAR HGB CONC 32.1 g/dL (32.0-36.0); MEAN CORPUSCULAR VOLUME 84 fl (80-97); MONOCYTES % (AUTO) 8.2 % (3-13); RED BLOOD COUNT 3.66 10^6/uL (4.35-5.55); RED CELL DISTRIBUTION WIDTH 16.8 % (11.5-14.0); SEGMENTED NEUTROPHILS % (AUTO) 80.4 % (42-78); WHITE BLOOD COUNT 11.1 10^3/uL (4.0-10.5)
[2016-12-16] MEDS: BUDESONIDE NEB 0.5 MG/2 ML AMPUL NEB SCH ×2 (08:27→20:31)
[2016-12-16] MEDS: IPRATROPIUM/ALBUTEROL 0.5-2.5 MG/3 ML AMPUL NEB SCH ×3 (08:27→20:31)
[2016-12-16] MEDS: ENOXAPARIN SODIUM INJ 40 MG/0.4 ML DISP.SYRIN SUBCUT SCH (09:15)
[2016-12-16] MEDS ORDERED: IPRATROPIUM/ALBUTEROL 0.5-2.5 MG/3 ML AMPUL NEB PRN (10:43)
[2016-12-16] MEDS ORDERED: (PENDING PHARMACY ID) (Lisinopril [Prinivil 2.5 Mg Tablet] 2.5 MG) PO SCH (10:45)
--- NOTE | 2016-12-16 10:46 | PDOC PROGRESS REPORT ---
Subjective Progress Note for:: 12/16/16 Subjective:: The patient is currently sitting in bed. The patient states his dyspnea has improved. The patient denies any nausea, vomiting, diarrhea, , dizziness, chest pain, heart palpitations, fevers, or chills. The patient has remained afebrile. Blood pressures have been in a good range. The patient voices no other concerns at this time. Review of systems: The rest of the review of systems is negative. Physical Exam Vital Signs: Temp Pulse Resp BP Pulse Ox 98.5 F 87 24 H 156/75 H 95 12/16/16 08:11 12/16/16 08:26 12/16/16 08:26 12/16/16 08:11 12/16/16 08:26 Pulse Oximeter Continuous Start: 12/13/16 11: 19 Freq: RTQ4 Status: Active Document 12/16/16 08:26 [facility] (Rec: 12/16/16 08:39 [facility] [email or web address]) Pulse Oximetry Assessment Oxygen Saturation (92-100) 95 Oxygen Flow Rate (L/min) 2 Oxygen Delivery Method Nasal Cannula Fraction of Inspired Oxygen (FIO2) 28 Equipment Usage Equipment in Use Continuous SpO2 Machine # 2 Intake & Output 12/14/16 12/15/16 12/16/16 23:59 23:59 23:59 Intake Total 2511 1704 1132 Output Total 715 130 Balance 1796 1574 1132 General appearance: PRESENT: no acute distress, cooperative, well-developed, well-nourished Head exam: PRESENT: atraumatic, normocephalic Eye exam: PRESENT: conjunctiva pink, EOMI, PERRLA. ABSENT: scleral icterus Ear exam: PRESENT: normal external ear exam Mouth exam: PRESENT: moist, tongue midline Neck exam: ABSENT: carotid bruit, JVD, lymphadenopathy, thyromegaly Respiratory exam: PRESENT: symmetrical, unlabored, wheezes. ABSENT: rales, rhonchi, tachypnea Cardiovascular exam: PRESENT: RRR. ABSENT: diastolic murmur, rubs, systolic murmur Pulses: PRESENT: normal dorsalis pedis pul Vascular exam: PRESENT: normal capillary refill GI/Abdominal exam: PRESENT: firm, normal bowel sounds, soft. ABSENT: distended , guarding, mass, organolmegaly, rebound, tenderness Rectal exam: PRESENT: deferred Extremities exam: PRESENT: full ROM. ABSENT: calf tenderness, clubbing, pedal edema Neurological exam: PRESENT: alert, awake, oriented to person, oriented to place , oriented to time, oriented to situation, CN II-XII grossly intact. ABSENT: motor sensory deficit Psychiatric exam: PRESENT: appropriate affect, normal mood. ABSENT: homicidal ideation, suicidal ideation Skin exam: PRESENT: dry, intact, warm. ABSENT: cyanosis, rash Results Laboratory Results: 12/16/16 06:45 12/14/16 05:37 12/16/16 06:45 WBC 11.1 H RBC 3.66 L Hgb 9.9 L Hct 30.8 L MCV 84 MCH 27.0 MCHC 32.1 RDW 16.8 H Plt Count 194 Seg Neutrophils % 80.4 H Lymphocytes % 8.8 L Monocytes % 8.2 Eosinophils % 2.4 Basophils % 0.2 Absolute Neutrophils 8.9 H Absolute Lymphocytes 1.0 Absolute Monocytes 0.9 Absolute Eosinophils 0.3 Absolute Basophils 0.0 12/14/16 05:37 NT-Pro-B Natriuret Pep 507 H Impressions: Abdomen/Pelvis CT 12/13/16 00:57 IMPRESSION: 1. Acute appendicitis. No evidence of abscess or free air. 2. Prominent hiatal hernia. 3. Sigmoid colon containing left inguinal hernia without imaging findings to suggest incarceration. 4. Other chronic and incidental findings as detailed above. Chest X-Ray 12/14/16 08:43 IMPRESSION: Right basilar airspace disease likely atelectasis Assessment & Plan - Diagnosis (1) Acute appendicitis Qualifiers: Acute appendicitis type: with localized peritonitis Qualified Code(s): K35.3 - Acute appendicitis with localized peritonitis Is this a current diagnosis for this admission?: YesPlan: Management as per surgicalist. (2) Essential (primary) hypertension Is this a current diagnosis for this admission?: YesPlan: Will resume the patient's home blood pressure medications and continue when necessary IV agents. (3) Wheezing Is this a current diagnosis for this admission?: YesPlan: Most likely the patient has an underlying COPD. Will start the patient on Advair continue when necessary nebs and Singulair at night - Time Time Spent with patient: 25-34 minutes Medications reviewed and adjusted accordingly: Yes
[2016-12-16] MEDS: DOCUSATE SODIUM 100 MG CAPSULE PO SCH ×2 (11:53→17:20)
[2016-12-16] MEDS: LISINOPRIL 5 MG TABLET PO SCH (11:54)
[2016-12-16] MEDS ORDERED: FLUTICASONE/SALMETEROL DISKUS 250-50 MCG/DOSE IH ONE (12:00)
--- NOTE | 2016-12-16 12:46 | PDOC PROGRESS REPORT ---
Subjective Progress Note for:: 12/16/16 Subjective:: Patient tolerated clear liquids but hasn't had reliable bowel function. Physical Exam Vital Signs: Temp Pulse Resp BP Pulse Ox 98.8 F 79 16 133/62 H 95 12/16/16 12:01 12/16/16 12:01 12/16/16 12:01 12/16/16 12:01 12/16/16 12:32 Pulse Oximeter Continuous Start: 12/13/16 11: 19 Freq: RTQ4 Status: Active Document 12/16/16 12:32 [facility] (Rec: 12/16/16 12:33 [facility] [email or web address]) Pulse Oximetry Assessment Oxygen Saturation (92-100) 95 Oxygen Flow Rate (L/min) 2 Oxygen Delivery Method Nasal Cannula Fraction of Inspired Oxygen (FIO2) 28 Equipment Usage Equipment in Use Continuous SpO2 Machine # 2 Additional RT Notes Other HR 89bpm. Intake & Output 12/15/16 12/16/16 12/17/16 06:59 06:59 06:59 Intake Total 2310 1844 Output Total 705 130 Balance 1605 1714 General appearance: PRESENT: no acute distress, other - Patient in less respiratory distress this morning GI/Abdominal exam: PRESENT: other - The abdomen is still somewhat distended, with resolving bruising in the pelvic region. Operative drain removed uneventfully. Results Laboratory Results: 12/16/16 06:45 12/14/16 05:37 12/16/16 06:45 WBC 11.1 H RBC 3.66 L Hgb 9.9 L Hct 30.8 L MCV 84 MCH 27.0 MCHC 32.1 RDW 16.8 H Plt Count 194 Seg Neutrophils % 80.4 H Lymphocytes % 8.8 L Monocytes % 8.2 Eosinophils % 2.4 Basophils % 0.2 Absolute Neutrophils 8.9 H Absolute Lymphocytes 1.0 Absolute Monocytes 0.9 Absolute Eosinophils 0.3 Absolute Basophils 0.0 12/14/16 05:37 NT-Pro-B Natriuret Pep 507 H Impressions: Abdomen/Pelvis CT 12/13/16 00:57 IMPRESSION: 1. Acute appendicitis. No evidence of abscess or free air. 2. Prominent hiatal hernia. 3. Sigmoid colon containing left inguinal hernia without imaging findings to suggest incarceration. 4. Other chronic and incidental findings as detailed above. Chest X-Ray 12/14/16 08:43 IMPRESSION: Right basilar airspace disease likely atelectasis Assessment & Plan - Diagnosis (1) Acute appendicitis Qualifiers: Acute appendicitis type: with localized peritonitis Qualified Code(s): K35.3 - Acute appendicitis with localized peritonitis Is this a current diagnosis for this admission?: YesPlan: 1. Patient is postoperative day 3 status post laparoscopic appendectomy. Patient doing reasonably well with improved pulmonary function but slow return of GI function. Drain now removed. 2. We will keep on clear liquids today, encourage further ambulation, by mouth pain medication.
[2016-12-16] MEDS: CHLORPROMAZINE HCL 10 MG TABLET PO PRN (16:20)
[2016-12-16] MEDS: MONTELUKAST SODIUM 10 MG TABLET PO SCH (22:00)
[2016-12-16] MEDS: FLUTICASONE/SALMETEROL DISKUS 250-50 MCG/DOSE IH SCH (22:01)
[2016-12-17] MEDS: PIPERACILLIN SODIUM/TAZOBACTAM 3.375 GM in NORMAL SALINE 100 ML IV SCH ×4 (06:26→23:42)
[2016-12-17] MEDS: CHLORPROMAZINE HCL 10 MG TABLET PO PRN ×3 (06:26→19:26)
[2016-12-17] MEDS: ENOXAPARIN SODIUM INJ 40 MG/0.4 ML DISP.SYRIN SUBCUT SCH (08:11)
[2016-12-17] MEDS: BUDESONIDE NEB 0.5 MG/2 ML AMPUL NEB SCH (08:23)
[2016-12-17] MEDS: IPRATROPIUM/ALBUTEROL 0.5-2.5 MG/3 ML AMPUL NEB SCH ×3 (08:23→19:57)
[2016-12-17] MEDS: DOCUSATE SODIUM 100 MG CAPSULE PO SCH ×2 (09:08→18:10)
[2016-12-17] MEDS: FLUTICASONE/SALMETEROL DISKUS 250-50 MCG/DOSE IH SCH ×2 (09:08→21:40)
[2016-12-17] MEDS: LISINOPRIL 5 MG TABLET PO SCH (10:31)
[2016-12-17] MEDS ORDERED: BISACODYL 10 MG SUPP.RECT PR ONE (10:34)
--- NOTE | 2016-12-17 12:03 | PDOC PROGRESS REPORT ---
Subjective Progress Note for:: 12/17/16 Subjective:: Patient is seen this morning on rounds. He is resting comfortably in bed. His daughter is at bedside. He is off oxygen. He states that his cough is gone and he is no longer dyspneic. He denies any chest pain, dizziness or headache. He complains of mild abdominal pain. He appears somewhat distended. His bowels have not moved since surgery. He denies any other complaints at the present time. Physical Exam Vital Signs: Temp Pulse Resp BP Pulse Ox 98.8 F 96 20 146/63 H 97 12/17/16 11:34 12/17/16 11:34 12/17/16 11:34 12/17/16 11:34 12/17/16 11:34 Pulse Oximeter Continuous Start: 12/13/16 11: 19 Freq: RTQ4 Status: Active Document 12/17/16 08:23 [facility] (Rec: 12/17/16 11:26 [facility] [email or web address]) Pulse Oximetry Assessment Oxygen Saturation (92-100) 97 Oxygen Flow Rate (L/min) 3 Oxygen Delivery Method Nasal Cannula Equipment Usage Equipment Standby Continuous SpO2 Machine # n2 Intake & Output 12/16/16 12/17/16 12/18/16 06:59 06:59 06:59 Intake Total 1844 1580 Output Total 130 Balance 1714 1580 General appearance: PRESENT: no acute distress, well-developed, well-nourished Head exam: PRESENT: atraumatic, normocephalic Eye exam: PRESENT: conjunctiva pink, EOMI, PERRLA. ABSENT: scleral icterus Ear exam: PRESENT: normal external ear exam Mouth exam: PRESENT: moist, tongue midline Neck exam: ABSENT: carotid bruit, JVD, lymphadenopathy, thyromegaly Respiratory exam: PRESENT: clear to auscultation william, symmetrical, unlabored. ABSENT: rales, rhonchi, wheezes Cardiovascular exam: PRESENT: RRR. ABSENT: diastolic murmur, rubs, systolic murmur Pulses: PRESENT: normal dorsalis pedis pul Vascular exam: PRESENT: normal capillary refill GI/Abdominal exam: PRESENT: distended, hypoactive bowel sounds, soft, tenderness - mild around incisions Rectal exam: PRESENT: deferred Extremities exam: PRESENT: full ROM. ABSENT: calf tenderness, clubbing, pedal edema Musculoskeletal exam: PRESENT: ambulatory Neurological exam: PRESENT: alert, awake, oriented to person, oriented to place , oriented to time, oriented to situation, CN II-XII grossly intact. ABSENT: motor sensory deficit Psychiatric exam: PRESENT: appropriate affect, normal mood. ABSENT: homicidal ideation, suicidal ideation Skin exam: PRESENT: dry, intact, warm. ABSENT: cyanosis, rash Results Laboratory Results: 12/16/16 06:45 12/14/16 05:37 12/14/16 05:37 NT-Pro-B Natriuret Pep 507 H Impressions: Abdomen/Pelvis CT 12/13/16 00:57 IMPRESSION: 1. Acute appendicitis. No evidence of abscess or free air. 2. Prominent hiatal hernia. 3. Sigmoid colon containing left inguinal hernia without imaging findings to suggest incarceration. 4. Other chronic and incidental findings as detailed above. Chest X-Ray 12/14/16 08:43 IMPRESSION: Right basilar airspace disease likely atelectasis Assessment & Plan - Diagnosis (1) Acute appendicitis Qualifiers: Acute appendicitis type: with localized peritonitis Qualified Code(s): K35.3 - Acute appendicitis with localized peritonitis Is this a current diagnosis for this admission?: YesPlan: Patient is POD #4 emergent appendectomy with drain placement by Dr Nguyen. Drain removed yesterday. He is tolerating clear liquids. Doing very well at this time. On Zosyn (2) Wheezing Is this a current diagnosis for this admission?: YesPlan: Patient with mild expiratory wheezing on auscultation. Does not appear to be related to fluid volume overload. Will continue Duoneb nebulizers and flutter valve. Patient with senior living smoking history. (3) Essential (primary) hypertension Is this a current diagnosis for this admission?: YesPlan: Patient is presently normotensive and NPO. He takes low dose lisinopril. Will add prn vasotec for hypertension if needed prior to him resuming oral intake - Time Time Spent with patient: 25-34 minutes Critical Time spent with patient: 15-24 minutes Medications reviewed and adjusted accordingly: Yes Anticipated discharge: Home with Homehealth
[2016-12-17] MEDS: ONDANSETRON HCL INJ/PF 4 MG/2 ML SDV IV PRN (12:34)
--- NOTE | 2016-12-17 13:15 | PDOC PROGRESS REPORT ---
Subjective Progress Note for:: 12/15/16 Subjective:: Patient is seen this morning on rounds. He is sleeping upon entering the room. His grandson is at the bedside. He continues to have congested cough and wheezing. The patient feels it is improving with nebulizer treatments. He denies any nausea, and his incisional discomfort is well controlled. He is tolerating clear liquids. He denies any other complaints at the present time. Physical Exam Vital Signs: Temp Pulse Resp BP Pulse Ox 99.4 F 100 18 119/54 L 94 12/15/16 07:29 12/15/16 08:38 12/15/16 08:38 12/15/16 07:29 12/15/16 08:38 Pulse Oximeter Continuous Start: 12/13/16 11: 19 Freq: RTQ4 Status: Active Document 12/15/16 08:38 [facility] (Rec: 12/15/16 08:48 [facility] [email or web address]) Pulse Oximetry Assessment Oxygen Saturation (92-100) 94 Oxygen Flow Rate (L/min) 2 Oxygen Delivery Method Nasal Cannula Equipment Usage Equipment in Use Continuous SpO2 Machine # 2 Intake & Output 12/14/16 12/15/16 12/16/16 06:59 06:59 06:59 Intake Total 2449 2310 Output Total 600 705 Balance 1849 1605 General appearance: PRESENT: no acute distress, well-developed, well-nourished Head exam: PRESENT: atraumatic, normocephalic Eye exam: PRESENT: conjunctiva pink, EOMI, PERRLA. ABSENT: scleral icterus Ear exam: PRESENT: normal external ear exam Mouth exam: PRESENT: moist, tongue midline Teeth exam: PRESENT: poor dentation Neck exam: ABSENT: carotid bruit, JVD, lymphadenopathy, thyromegaly Respiratory exam: PRESENT: symmetrical, unlabored, wheezes - bilaterally Cardiovascular exam: PRESENT: RRR. ABSENT: diastolic murmur, rubs, systolic murmur Pulses: PRESENT: normal dorsalis pedis pul Vascular exam: PRESENT: normal capillary refill GI/Abdominal exam: PRESENT: distended - around incisions, passing gas but no BM , normal bowel sounds, soft, tenderness. ABSENT: guarding, mass, organolmegaly , rebound Extremities exam: PRESENT: full ROM. ABSENT: calf tenderness, clubbing, pedal edema Musculoskeletal exam: PRESENT: ambulatory Neurological exam: PRESENT: alert, awake, oriented to person, oriented to place , oriented to time, oriented to situation, CN II-XII grossly intact. ABSENT: motor sensory deficit Psychiatric exam: PRESENT: appropriate affect, normal mood. ABSENT: homicidal ideation, suicidal ideation Skin exam: PRESENT: dry, intact, warm. ABSENT: cyanosis, rash Results Laboratory Results: 12/15/16 07:12 12/14/16 05:37 12/15/16 07:12 WBC 14.5 H RBC 3.87 L Hgb 10.5 L Hct 32.6 L MCV 84 MCH 27.2 MCHC 32.3 RDW 16.9 H Plt Count 179 Seg Neutrophils % 88.0 H Lymphocytes % 6.6 L Monocytes % 4.9 Eosinophils % 0.4 Basophils % 0.1 Absolute Neutrophils 12.7 H Absolute Lymphocytes 1.0 Absolute Monocytes 0.7 Absolute Eosinophils 0.1 Absolute Basophils 0.0 12/14/16 05:37 NT-Pro-B Natriuret Pep 507 H Impressions: Abdomen/Pelvis CT 12/13/16 00:57 IMPRESSION: 1. Acute appendicitis. No evidence of abscess or free air. 2. Prominent hiatal hernia. 3. Sigmoid colon containing left inguinal hernia without imaging findings to suggest incarceration. 4. Other chronic and incidental findings as detailed above. Chest X-Ray 12/14/16 08:43 IMPRESSION: Right basilar airspace disease likely atelectasis Assessment & Plan - Diagnosis (1) Acute appendicitis Qualifiers: Acute appendicitis type: with localized peritonitis Qualified Code(s): K35.3 - Acute appendicitis with localized peritonitis Is this a current diagnosis for this admission?: YesPlan: Patient is POD #4 emergent appendectomy with drain placement by Dr Nguyen. Drain removed today. He is tolerating clear liquids. Doing very well at this time. On Zosyn. (2) Wheezing Is this a current diagnosis for this admission?: YesPlan: Patient with mild expiratory wheezing on auscultation. Does not appear to be related to fluid volume overload. Will continue Duoneb nebulizers and flutter valve. Patient with nursing home smoking history. (3) Essential (primary) hypertension Is this a current diagnosis for this admission?: YesPlan: Patient is presently normotensive and NPO. He takes low dose lisinopril. Will add prn vasotec for hypertension if needed prior to him resuming oral intake - Time Time Spent with patient: 25-34 minutes Critical Time spent with patient: 25-34 minutes Medications reviewed and adjusted accordingly: Yes
[2016-12-17] MEDS: LACTULOSE SYRUP 20 GM/30 ML UDCUP PO SCH (18:10)
[2016-12-17] MEDS ORDERED: PANTOPRAZOLE SODIUM 40 MG VIAL IV ONE (20:00)
--- NOTE | 2016-12-17 21:03 | PDOC PROGRESS REPORT ---
Subjective Subjective:: Burping and hiccups, no nausea per se. Passing flatus. Denies pain, fevers. Small amounts of clear liquids. Physical Exam Vital Signs: Temp Pulse Resp BP Pulse Ox 98.5 F 79 16 121/72 95 12/17/16 16:03 12/17/16 20:00 12/17/16 20:00 12/17/16 16:03 12/17/16 20:00 Pulse Oximeter Continuous Start: 12/13/16 11: 19 Freq: RTQ4 Status: Active Document 12/17/16 20:00 [facility] (Rec: 12/17/16 20:01 [facility] [email or web address]) Pulse Oximetry Assessment Equipment Usage Equipment Standby Continuous SpO2 Machine # n-2 Intake & Output 12/16/16 12/17/16 12/18/16 06:59 06:59 06:59 Intake Total 1844 1580 1110 Output Total 130 Balance 1714 1580 1110 General appearance: PRESENT: no acute distress Head exam: PRESENT: normocephalic Eye exam: PRESENT: EOMI GI/Abdominal exam: PRESENT: distended, soft, other - Band-Aids removed. Incisions with Steri-Strips, no issues. Good bowel sounds, but still distended with some upper abdominal tympany.. ABSENT: tenderness Neurological exam: PRESENT: alert, oriented to situation Psychiatric exam: PRESENT: appropriate affect, normal mood Results Laboratory Results: 12/16/16 06:45 12/14/16 05:37 12/14/16 05:37 NT-Pro-B Natriuret Pep 507 H Impressions: Abdomen/Pelvis CT 12/13/16 00:57 IMPRESSION: 1. Acute appendicitis. No evidence of abscess or free air. 2. Prominent hiatal hernia. 3. Sigmoid colon containing left inguinal hernia without imaging findings to suggest incarceration. 4. Other chronic and incidental findings as detailed above. Chest X-Ray 12/14/16 08:43 IMPRESSION: Right basilar airspace disease likely atelectasis Assessment & Plan - Diagnosis (1) Acute appendicitis Qualifiers: Acute appendicitis type: with localized peritonitis Qualified Code(s): K35.3 - Acute appendicitis with localized peritonitis Is this a current diagnosis for this admission?: YesPlan: Vitals great. Urine outputs great. Bowels seem little slow to fully wake up. Acute appendicitis with peritoneal contamination. Continue IV antibiotics. Continue pulmonary toilet. Do not advance diet, in fact I recommended that he limited himself to rest the day to small amounts of ice chips or sips of water to avoid cotton mouth, but otherwise avoid any significant intake. Start IV Protonix. Spoke with the patient as well as later over the phone with his son. Encouraged ambulation, ambulation, ambulation as well as deep breathe and cough.
[2016-12-17] MEDS: MONTELUKAST SODIUM 10 MG TABLET PO SCH (21:39)
[2016-12-17] MEDS: BUDESONIDE/FORMOTEROL 160-4.5 MCG 60 PUFF/6 GM MDI IH SCH (21:40)
[2016-12-18] MEDS: PIPERACILLIN SODIUM/TAZOBACTAM 3.375 GM in NORMAL SALINE 100 ML IV SCH ×4 (05:52→23:37)
[2016-12-18] MEDS: ENOXAPARIN SODIUM INJ 40 MG/0.4 ML DISP.SYRIN SUBCUT SCH (08:42)
[2016-12-18] MEDS: IPRATROPIUM/ALBUTEROL 0.5-2.5 MG/3 ML AMPUL NEB SCH (08:48)
[2016-12-18] MEDS ORDERED: ALBUTEROL SULFATE 0.042% NEB (1.25 MG/3 ML) AMPUL NEB PRN (09:03)
--- NOTE | 2016-12-18 09:08 | PDOC PROGRESS REPORT ---
Subjective Progress Note for:: 12/18/16 Subjective:: The patient is currently sitting in bed. The patient states his dyspnea has improved. The patient is no longer wearing O2. The patient denies any nausea, vomiting, diarrhea, , dizziness, chest pain, heart palpitations, fevers, or chills. The patient has remained afebrile. Blood pressures have been in a good range but elevated. The patient voices no other concerns at this time. Review of systems: The rest of the review of systems is negative. Physical Exam Vital Signs: Temp Pulse Resp BP Pulse Ox 98.2 F 79 18 158/76 H 91 L 12/17/16 23:29 12/18/16 08:48 12/18/16 08:48 12/17/16 23:29 12/18/16 08:48 Intake & Output 12/16/16 12/17/16 12/18/16 23:59 23:59 23:59 Intake Total 2152 1670 1220 Balance 2152 1670 1220 Weight 70 kg General appearance: PRESENT: no acute distress, cooperative, well-developed, well-nourished Head exam: PRESENT: atraumatic, normocephalic Eye exam: PRESENT: conjunctiva pink, EOMI, PERRLA. ABSENT: scleral icterus Ear exam: PRESENT: normal external ear exam Mouth exam: PRESENT: moist, tongue midline Neck exam: ABSENT: carotid bruit, JVD, lymphadenopathy, thyromegaly Respiratory exam: PRESENT: symmetrical, unlabored, wheezes. ABSENT: rales, rhonchi, tachypnea Cardiovascular exam: PRESENT: RRR. ABSENT: diastolic murmur, rubs, systolic murmur Pulses: PRESENT: normal dorsalis pedis pul Vascular exam: PRESENT: normal capillary refill GI/Abdominal exam: PRESENT: firm, normal bowel sounds, soft. ABSENT: distended , guarding, mass, organolmegaly, rebound, tenderness Rectal exam: PRESENT: deferred Extremities exam: PRESENT: full ROM. ABSENT: calf tenderness, clubbing, pedal edema Neurological exam: PRESENT: alert, awake, oriented to person, oriented to place , oriented to time, oriented to situation, CN II-XII grossly intact. ABSENT: motor sensory deficit Psychiatric exam: PRESENT: appropriate affect, normal mood. ABSENT: homicidal ideation, suicidal ideation Skin exam: PRESENT: dry, intact, warm. ABSENT: cyanosis, rash Results Laboratory Results: 12/16/16 06:45 12/14/16 05:37 12/14/16 05:37 NT-Pro-B Natriuret Pep 507 H Impressions: Abdomen/Pelvis CT 12/13/16 00:57 IMPRESSION: 1. Acute appendicitis. No evidence of abscess or free air. 2. Prominent hiatal hernia. 3. Sigmoid colon containing left inguinal hernia without imaging findings to suggest incarceration. 4. Other chronic and incidental findings as detailed above. Chest X-Ray 12/14/16 08:43 IMPRESSION: Right basilar airspace disease likely atelectasis Assessment & Plan - Diagnosis (1) Acute appendicitis Qualifiers: Acute appendicitis type: with localized peritonitis Qualified Code(s): K35.3 - Acute appendicitis with localized peritonitis Is this a current diagnosis for this admission?: YesPlan: Management as per surgery (2) Essential (primary) hypertension Is this a current diagnosis for this admission?: YesPlan: Will increase lisinopril to 5 milligrams. Blood pressure is elevated but in a decent range. Repeat in a.m. and follow. Tenia when necessary Vasotec (3) Wheezing Is this a current diagnosis for this admission?: YesPlan: Resolved. Will discontinue schedule nebulizers. Most likely the patient has an underlying COPD. Will start the patient on Advair continue when necessary nebs and Singulair at night - Time Time Spent with patient: 25-34 minutes Medications reviewed and adjusted accordingly: Yes
[2016-12-18] MEDS: LACTULOSE SYRUP 20 GM/30 ML UDCUP PO SCH ×2 (09:17→17:11)
[2016-12-18] MEDS: DOCUSATE SODIUM 100 MG CAPSULE PO SCH ×2 (09:17→17:11)
[2016-12-18] MEDS: BUDESONIDE/FORMOTEROL 160-4.5 MCG 60 PUFF/6 GM MDI IH SCH ×2 (09:18→21:24)
[2016-12-18] MEDS: PANTOPRAZOLE SODIUM 40 MG VIAL IV SCH (09:18)
[2016-12-18] MEDS: FLUTICASONE/SALMETEROL DISKUS 250-50 MCG/DOSE IH SCH ×2 (09:18→21:24)
--- NOTE | 2016-12-18 10:07 | PDOC PROGRESS REPORT ---
Subjective Progress Note for:: 12/18/16 Subjective:: Feels well. Having bowel movements. No nausea or vomiting. Marked improvement of abdominal pain. Physical Exam Vital Signs: Temp Pulse Resp BP Pulse Ox 98.2 F 79 18 158/76 H 91 L 12/17/16 23:29 12/18/16 08:48 12/18/16 08:48 12/17/16 23:29 12/18/16 08:48 Pulse Oximeter Continuous Start: 12/13/16 11: 19 Freq: RTQ4 Status: Complete Document 12/18/16 04:00 STI (Rec: 12/18/16 06:29 STI [id number]) Pulse Oximetry Assessment Oxygen Saturation (92-100) 96 Oxygen Flow Rate (L/min) 3.0 Oxygen Delivery Method Nasal Cannula Fraction of Inspired Oxygen (FIO2) 32 Equipment Usage Equipment in Use Continuous SpO2 Machine # N-[id number] Intake & Output 12/17/16 12/18/16 12/19/16 06:59 06:59 06:59 Intake Total 1580 2330 Balance 1580 2330 Weight 70 kg General appearance: PRESENT: no acute distress Respiratory exam: PRESENT: wheezes Cardiovascular exam: PRESENT: RRR GI/Abdominal exam: PRESENT: other - Soft, nondistended as per the patient. Very mild lower abdominal tenderness with no peritoneal signs. Extremities exam: PRESENT: other - No swelling and no tenderness. Results Laboratory Results: 12/16/16 06:45 12/14/16 05:37 12/14/16 05:37 NT-Pro-B Natriuret Pep 507 H Impressions: Abdomen/Pelvis CT 12/13/16 00:57 IMPRESSION: 1. Acute appendicitis. No evidence of abscess or free air. 2. Prominent hiatal hernia. 3. Sigmoid colon containing left inguinal hernia without imaging findings to suggest incarceration. 4. Other chronic and incidental findings as detailed above. Chest X-Ray 12/14/16 08:43 IMPRESSION: Right basilar airspace disease likely atelectasis Assessment & Plan - Diagnosis (1) Acute appendicitis Qualifiers: Acute appendicitis type: with generalized peritonitis Qualified Code (s): K35.2 - Acute appendicitis with generalized peritonitis Is this a current diagnosis for this admission?: YesPlan: Status post laparoscopic appendectomy. Patient is looking better. Continue IV antibiotics will advance diet. Possible discharge home tomorrow.
[2016-12-18] MEDS ORDERED: LISINOPRIL 5 MG TABLET PO ONE (11:15)
[2016-12-18] MEDS: MONTELUKAST SODIUM 10 MG TABLET PO SCH (21:24)
[2016-12-19] MEDS: PIPERACILLIN SODIUM/TAZOBACTAM 3.375 GM in NORMAL SALINE 100 ML IV SCH ×2 (06:55→11:56)
[2016-12-19 07:51] LABS: HEMATOCRIT 32.8 % (37.9-51.0); HEMOGLOBIN 10.7 g/dL (13.5-17.0); HGB HCT DIFFERENCE -0.7; MEAN CORPUSCULAR HEMOGLOBIN 27.1 pg (27.0-33.4); MEAN CORPUSCULAR HGB CONC 32.5 g/dL (32.0-36.0); MEAN CORPUSCULAR VOLUME 83 fl (80-97); RED BLOOD COUNT 3.94 10^6/uL (4.35-5.55); RED CELL DISTRIBUTION WIDTH 16.3 % (11.5-14.0); WHITE BLOOD COUNT 8.6 10^3/uL (4.0-10.5)
[2016-12-19 08:11] LABS: ANION GAP 12 (5-19); BLOOD UREA NITROGEN 11 mg/dL (7-20); CALCIUM 8.7 mg/dL (8.4-10.2); CARBON DIOXIDE 25 mmol/L (22-30); CHLORIDE 108 mmol/L (98-107); CREATININE RESULT 0.62 mg/dL (0.52-1.25); GLUCOSE 110 mg/dL (75-110); MAGNESIUM 1.9 mg/dL (1.6-2.3); SODIUM 144.5 mmol/L (137-145)
[2016-12-19 08:12] LABS: POTASSIUM 3.4 mmol/L (3.6-5.0)
[2016-12-19] MEDS: ENOXAPARIN SODIUM INJ 40 MG/0.4 ML DISP.SYRIN SUBCUT SCH (08:17)
--- NOTE | 2016-12-19 08:38 | PDOC PROGRESS REPORT ---
Subjective Progress Note for:: 12/19/16 Subjective:: The patient is currently sitting in bed. The patient states his dyspnea has improved. The patient is no longer wearing O2. The patient denies any nausea, vomiting, diarrhea, dizziness, chest pain, heart palpitations, fevers, or chills. Ean pain has resolved. The patient has remained afebrile. Blood pressures have been in a good range but elevated. The patient voices no other concerns at this time. Review of systems: The rest of the review of systems is negative. Physical Exam Vital Signs: Temp Pulse Resp BP Pulse Ox 97.4 F 82 18 161/76 H 100 12/19/16 07:42 12/19/16 07:42 12/19/16 07:42 12/19/16 07:42 12/19/16 07:42 Intake & Output 12/17/16 12/18/16 12/19/16 23:59 23:59 23:59 Intake Total 1670 1890 155 Output Total 460 Balance 1670 1890 -305 Weight 70 kg 70 kg General appearance: PRESENT: no acute distress, cooperative, well-developed, well-nourished Head exam: PRESENT: atraumatic, normocephalic Eye exam: PRESENT: conjunctiva pink, EOMI, PERRLA. ABSENT: scleral icterus Ear exam: PRESENT: normal external ear exam Mouth exam: PRESENT: moist, tongue midline Neck exam: ABSENT: carotid bruit, JVD, lymphadenopathy, thyromegaly Respiratory exam: PRESENT: symmetrical, unlabored, wheezes. ABSENT: rales, rhonchi, tachypnea Cardiovascular exam: PRESENT: RRR. ABSENT: diastolic murmur, rubs, systolic murmur Pulses: PRESENT: normal dorsalis pedis pul Vascular exam: PRESENT: normal capillary refill GI/Abdominal exam: PRESENT: firm, normal bowel sounds, soft. ABSENT: distended , guarding, mass, organolmegaly, rebound, tenderness Rectal exam: PRESENT: deferred Extremities exam: PRESENT: full ROM. ABSENT: calf tenderness, clubbing, pedal edema Neurological exam: PRESENT: alert, awake, oriented to person, oriented to place , oriented to time, oriented to situation, CN II-XII grossly intact. ABSENT: motor sensory deficit Psychiatric exam: PRESENT: appropriate affect, normal mood. ABSENT: homicidal ideation, suicidal ideation Skin exam: PRESENT: dry, intact, warm. ABSENT: cyanosis, rash Results Laboratory Results: 12/19/16 06:12 12/19/16 06:12 12/19/16 12/19/16 06:12 06:12 WBC 8.6 RBC 3.94 L Hgb 10.7 L Hct 32.8 L MCV 83 MCH 27.1 MCHC 32.5 RDW 16.3 H Plt Count 247 Sodium 144.5 Potassium 3.4 L Chloride 108 H Carbon Dioxide 25 Anion Gap 12 BUN 11 Creatinine 0.62 Est GFR ( Amer) > 60 Est GFR (Non-Af Amer) > 60 Glucose 110 Calcium 8.7 Magnesium 1.9 12/14/16 05:37 NT-Pro-B Natriuret Pep 507 H Impressions: Abdomen/Pelvis CT 12/13/16 00:57 IMPRESSION: 1. Acute appendicitis. No evidence of abscess or free air. 2. Prominent hiatal hernia. 3. Sigmoid colon containing left inguinal hernia without imaging findings to suggest incarceration. 4. Other chronic and incidental findings as detailed above. Chest X-Ray 12/14/16 08:43 IMPRESSION: Right basilar airspace disease likely atelectasis Assessment & Plan - Diagnosis (1) Acute appendicitis Qualifiers: Acute appendicitis type: with generalized peritonitis Qualified Code (s): K35.2 - Acute appendicitis with generalized peritonitis Is this a current diagnosis for this admission?: YesPlan: Management as per surgery (2) Essential (primary) hypertension Is this a current diagnosis for this admission?: YesPlan: Will increase lisinopril to 5 milligrams. Blood pressure is elevated but in a decent range. Repeat in a.m. and follow. Tenia when necessary Vasotec (3) Wheezing Is this a current diagnosis for this admission?: YesPlan: Resolved. discontinued schedule nebulizers. Most likely the patient has an underlying COPD. Will continue Advair. Prescription has been sent to the pharmacy. Encouraged tobacco abstinence. - Time Time Spent with patient: 15-24 minutes Medications reviewed and adjusted accordingly: Yes Disposition: The patient is a full code. Hospitalist will sign off on this patient at this time. Prescription for Advair has been sent to the patient's pharmacy. If there is a change in condition please feel free to reconsult the hospitalist again. And as always I would like to thank the surgicalists for allowing the hospitalists to participate in the care of this nice patient.
[2016-12-19] MEDS ORDERED: POTASSIUM CHLORIDE 20 MEQ/15 ML UDCUP PO ONE (09:00)
[2016-12-19] MEDS: LACTULOSE SYRUP 20 GM/30 ML UDCUP PO SCH (09:17)
[2016-12-19] MEDS: DOCUSATE SODIUM 100 MG CAPSULE PO SCH (09:17)
[2016-12-19] MEDS: FLUTICASONE/SALMETEROL DISKUS 250-50 MCG/DOSE IH SCH (09:18)
[2016-12-19] MEDS: BUDESONIDE/FORMOTEROL 160-4.5 MCG 60 PUFF/6 GM MDI IH SCH (09:18)
[2016-12-19] MEDS: PANTOPRAZOLE SODIUM 40 MG VIAL IV SCH (09:18)
--- NOTE | 2016-12-19 09:44 | DISCHARGE SUMMARY E ---
Discharge Summary NAME: CAROLINA WESLEY : 1930 AGE: 86Y ADMITTED: 12/13/2016 DISCHARGED: 12/19/2016 ADMITTING DIAGNOSIS: Acute appendicitis. DISCHARGE DIAGNOSIS: Acute appendicitis, locally perforated. OPERATION: Laparoscopic appendectomy. Drainage with a wash out done by Dr. Tarango. The patient recovered very well and tolerating diet. Currently afebrile. Abdominal examination is soft, nontender. bowewl sounds are normal. His lab cultures are normal. He is doing very well. We will discharge him home today and follow up in the Surgery Clinic in 1 week. DICTATING PHYSICIAN: MICHELE MANDUJANO M.D. [id number] PHY#: [id number] ID: [id number] JOB#: [id number] ACCT: [id number] cc:MICHELE MANDUJANO M.D. [facility] [facility] [facility], > [facility]
[2016-12-19] MEDS ORDERED: LISINOPRIL 5 MG TABLET PO SCH (10:00)
[2016-12-19 11:29] VITALS: BP 164/73
--- NOTE | 2017-01-04 21:43 | DISCHARGE SUMMARY E ---
Discharge Summary NAME: CAROLINA WESLEY : 1930 AGE: 86Y ADMITTED: 12/13/2016 DISCHARGED: 12/19/2016 ADMISSION DIAGNOSIS: Incarcerated left inguinal hernia. DISCHARGE DIAGNOSIS: Incarcerated left inguinal hernia. HOSPITAL COURSE: He underwent surgical correction. He had open repair of incarcerated left inguinal hernia, and then I saw him in the hospital and encouraged him to walk and then started him on a diet. The abdominal pain resolved completely. At the time of discharge the patient was doing very well. Discharge pain medication includes Mcleod for the pain and stool softeners. Followup plan in 2 weeks. DICTATING PHYSICIAN: MICHELE MANDUJANO M.D. [id number] Y#: [id number] 2022 ID: [id number] JOB#: [id number] ACCT: [id number] cc:MICHELE MANDUJANO M.D., JAMES M.D. >
== END 2016-12-19 13:18 | disposition home or self-care (01) | DRG 340 ==
LOC: ER 23:59 → EH 12-13 02:37 → UNDOADMIN 12-13 02:37 → EH 12-13 06:33 → 4S 12-13 06:33 → INTOOBSV 12-13 08:34 → 4S 12-13 08:34 → EH 12-13 08:34 → OBSVTOIN 12-13 10:12
PROVIDERS: ATTEND Surgery
PROC: 0DTJ4ZZ Resection of Appendix, Percutaneous Endoscopic Approach (ICD-10-PCS; principal; 2016-12-13 08:00)
PROC: 3E0F73Z Introduction of Anti-inflammatory into Respiratory Tract, Via Natural or Artificial Opening (ICD-10-PCS; 2016-12-14)
DX: K35.3 Acute appendicitis with localized peritonitis (principal); R06.2 Wheezing; I10 Essential (primary) hypertension; K44.9 Diaphragmatic hernia without obstruction or gangrene; E78.5 Hyperlipidemia, unspecified; Z87.891 Personal history of nicotine dependence
CPT/HCPCS: 36415; 71010; 71020; 74177; 80048; 80053; 81001; 83690; 83735; 83880; 840; 84100; 85025; 85027; 87040; 87077; 87186; 88304; 93005; 93010; 94640; 94667; 94668; 94762; 94799; 96361; 96374; 96375; 99285; J0131; J0330; J1100; J1170; J1335; J1650; J2250; J2270; J2310; J2370; J2405; J2543; J2704; J3010; J3480; J3490; J7030; J7620; S0164